=== PATIENT | female | born 1985 | race Caucasian/White ===

== ENCOUNTER 2021-10-13 16:38 | Emergency (ER) | payer OTHER, SELFPAY ==
[2021-10-13 16:47] VITALS: BP 112/63; PULSE 92; RESP 20; TEMP 37.4; O2SAT 98
--- NOTE | 2021-10-13 17:20 | ED.BURNSMOKE ---
HPI - Burn/Smoke Inhalation General Chief complaint: Burn/Smoke Inhalation Stated complaint: wc, right hand burn Time Seen by Provider: 10/13/21 17:10 Source: patient Mode of arrival: ambulatory Limitations: no limitations History of Present Illness HPI Narrative: Patient presents today with a burn to her right hand that was sustained at work at [employer] around 1400 today. States that a clamshell grill top closed partially on her hand. She currently rates her pain 4/10. Denies numbness or tingling. She is not up-to-date on her tetanus vaccine. She did apply some burn cream prior to arrival. Related Data Home Medications Medication Instructions Recorded Confirmed No Home Medications 10/13/21 10/13/21 Allergies Allergy/AdvReac Type Severity Reaction Status Date / Time No Known Allergies Allergy Mild Unverified 12/25/06 21:33 Review of Systems Review of Systems: CONSTITUTIONAL: Denies body aches, fever, chills, or sweats. EYES: Denies visual changes, redness, or discharge. ENT: Denies rhinorrhea, congestion, sore throat, or otalgia. CARDIOVASCULAR: Denies chest pain, palpitations, or edema. RESPIRATORY: Denies cough or dyspnea. GASTROINTESTINAL: Denies abdominal pain, nausea, vomiting, or diarrhea. GENITOURINARY: Denies dysuria or hematuria. SKIN: Denies rash, itching. + Burn to right hand MUSCULOSKELETAL: Denies back pain, joint pain, or myalgia. NEUROLOGIC: Denies headache, numbness, tingling, or weakness. PSYCH: Denies depression or anxiety. PMFSH Comments At time of signature, I have reviewed and agree with nursing past medical, surgical, social and family history unless otherwise noted. Please see nursing chart for further information. There is no relevant family history pertinent to the presenting complaint Exam Narrative: GENERAL: Well-appearing, well-nourished, and in no acute distress. HEAD: Normocephalic, atraumatic. EYES: EOMI. No redness or drainage. Conjunctivae normal. ENT: Mucous membranes pink and moist. NECK: Normal AROM. CHEST: No respiratory distress. EXTREMITIES: Normal range of motion. No edema. SKIN: Warm, dry, no rash. Capillary refill normal. Normal skin turgor. 3 x 4 cm superficial second-degree burn to the dorsal aspect of the right hand at the base the first finger, erythema with tiny blisters overlying it. Distal sensation intact. Capillary refill normal. Radial pulse normal. Full range of motion of all fingers. NEURO: No focal deficits. Alert and oriented x3. Gait steady. PSYCH: Normal affect. No signs of depression or anxiety. Course Course Emergency Course: Wound was cleaned and dressed with nonadherent dressing. Level of Care: Express Care Visit Vital Signs Vital signs: Vital Signs Temperature 99.3 F 10/13/21 16:47 Pulse Rate 92 10/13/21 16:47 Respiratory Rate 20 10/13/21 16:47 Blood Pressure 112/63 10/13/21 16:47 Pulse Oximetry 98 10/13/21 16:47 Oxygen Delivery Room Air 10/13/21 16:47 Temperature 99.3 F 10/13/21 16:47 Pulse Rate 92 10/13/21 16:47 Respiratory Rate 20 10/13/21 16:47 Blood Pressure 112/63 10/13/21 16:47 Pulse Oximetry 98 10/13/21 16:47 Oxygen Delivery Room Air 10/13/21 16:47 Reviewed MDM - Burn/Smoke Inhalation Differential Diagnosis Differential diagnosis: Likely other (First-degree burn, second-degree burn, third-degree burn) Critical Care Time Critical Care Time Critical Care Time: No Discharge Plan Discharge Clinical Impression: Second degree burn of back of right hand Patient Disposition: Home, Self-Care Condition: Stable Instructions: Superficial Burn (DC) Additional Instructions: Clean the burn daily with soap and water. Do not ruptured blisters, but allow them to rupture on their own. Apply Neosporin. Monitor for any signs of infection such as redness, swelling, increased pain or drainage, and see your doctor if you note any. Follow-up with your employer [employer]
[2021-10-13] MEDS: TETANUS,DIPHTHERIA,AC PERTUSSIS ADULT (0.5 ML) BOOSTRIX IM (17:24)
== END 2021-10-13 17:33 | disposition home or self-care (01) ==
PROVIDERS: Emergency Provider Nurse Practitioner
DX: T23.261A Burn of second degree of back of right hand, initial encounter (principal); X19.XXXA Contact with other heat and hot substances, initial encounter; Y99.0 Civilian activity done for income or pay; Z23 Encounter for immunization
CPT/HCPCS: 90471; 90715; 99212; G0463